=== PATIENT | male | born 1995 | race Caucasian/White ===

== ENCOUNTER 2016-10-12 05:33 | Emergency (ER) | payer OTHER | END 2016-10-12 08:27 | disposition home or self-care (01) | LOC: ER1 05:33 | DX: S67.01XA Crushing injury of right thumb, initial encounter (principal); S61.011A Laceration without foreign body of right thumb without damage to nail, initial encounter; Z23 Encounter for immunization; W31.89XA Contact with other specified machinery, initial encounter; Y92.69 Other specified industrial and construction area as the place of occurrence of the external cause; Y99.0 Civilian activity done for income or pay | CPT/HCPCS: 12001; 73140; 99283 ==